=== PATIENT | female | born 1955 | race Caucasian/White ===

== ENCOUNTER → 2016-03-07 | Day surgery (SDC) | payer BC, OTHER ==
--- NOTE | 2016-03-03 09:44 | TH ---
cc: INNA CARVALHO M.D. DATE: HISTORY OF PRESENT ILLNESS This is a 61-year-old female who underwent a bilateral breast reconstruction back on 12/14/2014. She was reconstructed with tissue expanders in January 2015. The patient underwent removal and replacement of the implants on 05/18/2015. The breasts have become very loose and deformed, the reason for which we are doing a revision bilaterally. PAST MEDICAL HISTORY Otherwise remarkable for: 1. Appendectomy. 2. Cleft palate repair. 3. Deviated septum. 4. Basal carcinoma. 5. D&C. ALLERGIES She is allergic to DOXYCYCLINE. MEDICATIONS 1. Estradiol. 2. Medroxyprogesterone. 3. Resveratrol. 4. Vitamin-D3. 5. Calcium. 6. Clayton. 7. Claritin. 8. Gabapentin. 9. Fluconazole. REVIEW OF SYSTEMS Otherwise unremarkable. PHYSICAL EXAMINATION GENERAL APPEARANCE: The patient is a well-developed female in no acute distress. Body habitus is within normal limits. There appear to be no deformities. Appears to have attention to grooming. HEENT: Conjunctiva and lids are within normal anatomical limits. The pupils are reactive to light and accommodation, size and symmetry. There is no evidence of exudate, hemorrhage, or vessel change. The external inspection of the ears and nose fails to demonstrate any pathology, scars, lesions, or masses. Nasal mucosa, septum, and turbinates appear to be well-hydrated as well as the lips and gums. No evidence of masses in the hypopharynx or submental area. CHEST: The patient shows no evidence of intercostal retractions. LUNGS: Clear to auscultation without any abnormal sounds or rubs. CARDIOVASCULAR: The patient has a normal heart rate and rhythm. There is no evidence of noted carotid bruits. Femoral pulses and pedal pulses in the extremities are also within normal limits. ABDOMEN: Soft with no evidence of masses or tenderness. Unable to palpate the liver or spleen. No evidence of hernia. MUSCULOSKELETAL: Appears to be reasonable range of motion of the head, neck, spine, ribs, pelvis, right upper extremity, left upper extremity, right lower extremity, and left lower extremity. The muscle strength and tone appears to be equal and within accepted limits. SKIN: There are no rashes, lesions, or ulcers on the trunk, back or extremities. NEUROLOGICAL: Examination is grossly normal. PSYCHIATRIC: The patient appears to have good orientation of time, place, and person. Does not appear to have any mood affects of depression, anxiety, or agitation. BREASTS: Both breasts have well-healed breast incisions and some deformity and lateralization is otherwise noted. PLAN Removal and replacement of the implants with revision circumvertical mastopexy. We are going to be using the SRX 420, to remove the ultra-high [place] that she has. MD DINO Sharma/[place] /9:22 AM /9:29 AM
[~2016-03-07] MED LIST: ACETAMINOPHEN 1000 MG/100 ML VIAL IV ONE; ACETAMINOPHEN/HYDROcodone 325 MG/5 MG TAB ONE; BACITRACIN IM FOR SOLN 50,000 UNIT VIAL ONE; BUPIVACAINE/EPINEPHRINE 0.25% 50 ML VIAL ONE; CALC500T35 OR; CLAR10TA7 OR; ESTR1TAB68 PO; GENTAMICIN SULFATE 80 MG/2 ML VIAL ONE; HYDR-3129 PO; LACTATED RINGER'S 1000 ML INJ 1,000 ML ONE; LIDOCAINE 1%/EPINEPHrine 1:100,000 SOLN 20 ML VIAL ONE; MORPHINE SULFATE 4 MG/ML INJ ONE; ONDANSETRON HCL 4 MG/2 ML VIAL IV PUSH ONE; PROPOFOL 200 MG/20 ML AMP IV ONE; RESV50CA OR; SEA-1000 PO; SODIUM CHLORIDE 0.9% 20 ML VIAL ONE; TAB-TAB PO; VITA5000 PO; ceFAZolin INJ 1,000 MG VIAL ONE
--- NOTE | 2016-03-07 12:19 | TN ---
cc: DEVIN SCHNEIDER M.D. DATE OF SURGERY: 03/07/2016 PREOPERATIVE DIAGNOSIS Status post bilateral mastectomies, deformity and asymmetry. POSTOPERATIVE DIAGNOSIS Status post bilateral mastectomies, deformity and asymmetry. PROCEDURE Bilateral removal and replacement of implants with bilateral inferior lateral and medial capsulorrhaphies and bilateral circumvertical and horizontal mastopexy. SURGEON Devin Schneider MD ANESTHESIA LMA, plus a breast block with a total of 60 cc of 1% lidocaine with epinephrine mixed with 0.25% Marcaine at 2:1 ratio. COMPLICATIONS None. DRAINS None. PROCEDURE IN DETAIL She was properly consented, marked and properly anesthetized. The skin was sterilized with Betadine solution and sterile draping was applied. Through a previous infra-areolar vertical incision and after isolating the skin, the nipple-areola with Tegaderm, I proceeded and performed a dissection down to the pocket of the implant and this was properly opened. The implant was removed without any difficulty. Irrigation with triple-antibiotic solution was carried out. Finding no evidence of pathology significant capsulorrhaphies were done in multiple layers of 0-silk in the lateral wall, medial wall, as well as the inferior wall. Once we properly approached that utilizing a no-touch technique the implant was introduced, being an SRX Natrelle Inspira, volume 420 cc, serial number right breast [id number] and serial number left breast [id number]. After the wound was closed with multiple 2-0 Monocryl sutures the patient was sat up. A tailor tack technique was utilized in order to accommodate the loose skin utilizing surgical marcelo. The NAC was kept at 42 mm areolar diameter and the NAC was approximately set at 22 cm from the sternal notch. With this I proceeded and performed the proper deepithelialization of the skin and closure of the wounds were done utilizing 2-0 Monocryl suture for the dermis and subcu. The NAC was closed in the new anatomical position utilizing a pinwheel 2-0 PTFE. Finally I proceeded and performed the proper closure of the skin utilizing Quill. Prineo Dermabond was utilized for the skin. Absorbent dressings were applied and properly covered with soft dressings and a snug brassiere. Good viability of the tissue was noted at the end of the case. The patient was awakened and extubated in the operating room. She was transferred back to the post-anesthesia care unit in stable condition. No complications appreciated. The patient tolerated the procedure fairly well. MD DINO Sharma/[place] /11:54 AM /12:10 PM KERVIN
== END | disposition home or self-care (01) ==
LOC: ESDC 06:05
PROVIDERS: ATTEND Plastic Surgery
DX: Z90.13 Acquired absence of bilateral breasts and nipples (principal); N65.1 Disproportion of reconstructed breast; N65.0 Deformity of reconstructed breast
CPT/HCPCS: 00402; 19316; 19340; 19380; C1789; J0131; J0690; J1580; J2270; J2405; J3010; J7120